=== PATIENT | female | born 1980 | race Two or more races ===

== ENCOUNTER 2017-10-27 17:50 | Emergency (ER) | payer SELFPAY ==
[~2017-10-27] VITALS: Ht 157.5 cm; Wt 73.0 kg
[2017-10-28 01:09] VITALS: BP 114/79
== END 2017-10-28 01:10 | disposition home or self-care (01) ==
LOC: ER 17:50
DX: T76.21XA Adult sexual abuse, suspected, initial encounter (principal)
CPT/HCPCS: 99283